=== PATIENT | female | born 1980 | race Hispanic/Latino ===

== ENCOUNTER 2019-03-24 09:07 | Emergency (ER) | payer BC ==
[~2019-03-24 09:07] MED LIST: KEFLEX500 MG PO; LABETALOL100 MG PO; MACROBID100 MG PO; MIRENA IU; OMNICEF300 MG PO; PRENATA3 OR; TUBERSOL5 MG/0.1 M ID
[2019-03-24 09:36] LABS: URINE BILIRUBIN - DIPSTICK NEGATIVE (NEGATIVE); URINE BLOOD DIPSTICK MODERATE (NEGATIVE); URINE COLOR YELLOW; URINE GLUCOSE - DIPSTICK NEGATIVE (NEGATIVE); URINE KETONE NEGATIVE (NEGATIVE); URINE LEUK ESTERASE TRACE (NEGATIVE); URINE NITRITE - DIPSTICK NEGATIVE (Negative); URINE PROTEIN - DIPSTICK NEGATIVE (NEG-TRACE); URINE SPECIFIC GRAVITY 1.025; URINE UROBILINOGEN - DIPSTICK 0.2 E.U./dL (0.2)
[2019-03-24 09:40] LABS: URINE EPITHELIAL CELLS MODERATE EPI/hpf (0-FEW); URINE WBC 0-2 WBC/hpf (0-5)
[2019-03-24 10:04] LABS: HEMATOCRIT 39.9 % (37.0-47.0); IMMATURE GRANULOCYTES 0.5 % (0.0-5.0); MEAN CELL VOLUME 87.1 fL CALC (80.0-100.0); MEAN CORPUSCULAR HGB 28.4 pG CALC (26.0-32.0); MEAN CORPUSCULAR HGB CONC 32.6 g/L CALC (32.0-36.0); NEUT# 4.22 thou/uL (2.00-7.15); RED BLOOD COUNT 4.58 mill/uL (4.20-5.60); RED CELL DISTRI WIDTH 12.5 % (11.5-15.5)
[2019-03-24 10:33] LABS: ANION GAP 17 (6-22 (CALC)); BILIRUBIN, TOTAL 0.4 mg/dL (0.0-1.4); BUN 12 mg/dL (7-17); BUN/CREATININE RATIO 19 (12-20 (CALC)); CARBON DIOXIDE 24 mmol/l (22-30); CHLORIDE 102 mmol/l (95-108); CREATININE 0.6 mg/dL (0.5-1.0); GFR > 60 ML/MIN (>=60 (CALC)); GFR FOR AFR.AMER. > 60 ML/MIN (>=60 (CALC)); POTASSIUM 4.4 mmol/l (3.5-5.1); SODIUM 139 mmol/l (137-146)
[2019-03-24 10:34] LABS: ALBUMIN 4.6 g/dL (3.2-5.0); ALKALINE PHOSPHATASE 67 u/l (38-126); SGOT/AST 57 u/l (14-36); TOTAL PROTEIN 7.6 g/dL (6.3-8.2)
[2019-03-24] MEDS ORDERED: HYDROCO/APAP1 TA9 PO (11:12)
[2019-03-24] MEDS ORDERED: TAMSULOSIN0.4 MG PO (11:15)
[2019-03-24 11:37] VITALS: BP 119/76
== END 2019-03-24 11:35 | disposition home or self-care (01) | DRG 694 ==
LOC: ED 09:07
PROVIDERS: Family Medicine
DX: N13.2 Hydronephrosis with renal and ureteral calculous obstruction (principal)

== ENCOUNTER 2019-03-25 06:33 | Observation (INO) | payer BC ==
[~2019-03-25] VITALS: Ht 167.6 cm; Wt 75.4 kg
[~2019-03-25 06:33] MED LIST changes: +HYDROCO/APAP1 TA9 PO; +TAMSULOSIN0.4 MG PO
--- NOTE | 2019-03-25 06:40 | NUR ---
PT TO ROOM 13 AMBLATORY
[2019-03-25 07:36] LABS: HEMATOCRIT 37.6 % (37.0-47.0); HEMOGLOBIN 12.4 g/dl (12.0-16.0); IMMATURE GRANULOCYTES 0.4 % (0.0-5.0); MEAN CORPUSCULAR HGB 28.7 pG CALC (26.0-32.0); NEUT# 6.13 thou/uL (2.00-7.15); RED BLOOD COUNT 4.32 mill/uL (4.20-5.60); RED CELL DISTRI WIDTH 12.4 % (11.5-15.5)
--- NOTE | 2019-03-25 07:44 | NUR ---
pt states pain has decreased to a 3 with toradol
[2019-03-25 07:55] LABS: ALBUMIN 3.9 g/dL (3.2-5.0); ALKALINE PHOSPHATASE 58 u/l (38-126); AMYLASE 41 u/l (30-110); ANION GAP 16 (6-22 (CALC)); BILIRUBIN, TOTAL 0.4 mg/dL (0.0-1.4); BUN 16 mg/dL (7-17); BUN/CREATININE RATIO 15 (12-20 (CALC)); CARBON DIOXIDE 22 mmol/l (22-30); CHLORIDE 105 mmol/l (95-108); CREATININE 1.1 mg/dL (0.5-1.0); GFR 56 ML/MIN (>=60 (CALC)); GFR FOR AFR.AMER. > 60 ML/MIN (>=60 (CALC)); LIPASE 141 u/l (23-300); SGOT/AST 35 u/l (14-36); SODIUM 138 mmol/l (137-146); TOTAL PROTEIN 6.8 g/dL (6.3-8.2)
[2019-03-25 08:00] LABS: URINE BILIRUBIN - DIPSTICK NEGATIVE (NEGATIVE); URINE COLOR YELLOW; URINE GLUCOSE - DIPSTICK NEGATIVE (NEGATIVE); URINE KETONE TRACE mg/dL (NEGATIVE); URINE LEUK ESTERASE NEGATIVE (NEGATIVE); URINE NITRITE - DIPSTICK NEGATIVE (Negative); URINE PH 5.5 (4.5-8.0); URINE PROTEIN - DIPSTICK NEGATIVE (NEG-TRACE); URINE SPECIFIC GRAVITY >=1.030; URINE UROBILINOGEN - DIPSTICK 0.2 E.U./dL (0.2)
[2019-03-25 08:02] LABS: URINE BLOOD DIPSTICK TRACE (NEGATIVE)
--- NOTE | 2019-03-25 08:12 | NUR ---
PT STATES PAIN IS RETURNING , DR. ROMERO NOTIFIED AND ORDERS RECEIVED
--- NOTE | 2019-03-25 09:27 | NUR ---
PT STATES PAIN HAS DECREASED TO A 3 AT THIS TIME
--- NOTE | 2019-03-25 10:32 | NUR ---
REPORT CALLED AND WILL WAIT FOR ORDERS FROM ADMITTING DOCTOR
--- NOTE | 2019-03-25 11:08 | NUR ---
SPOKE WITH IDANIA LARD TUB WASHER FOR ORDERS TO BE PLACED ON PT FOR ADMISSION, SHE STATES SHE WILL PUT THEM IN SOON SHE CAN
--- NOTE | 2019-03-25 11:30 | NUR ---
PT ARRIVED VIA WC WITH ER NURSE. WEIGHT OBTAINED STANDING. STEADY GAIT. MILD PAIN REPORTED TO LT FLANK BUT TOLERABLE. BERATHING EVEN AND UNLABORED. ORIENTED PT TO ROOM. ASSESSMENT COMPLETED. CALL LIGHT WITHIN REACH. CONTINUE TO MONITOR.
--- NOTE | 2019-03-25 11:33 | NUR ---
PT SENT UP TO ROOM PER W/C.
[2019-03-25 11:36] VITALS: BP 132/87
--- NOTE | 2019-03-25 12:40 | NUR ---
PT RESTING IN BED. C/O PAIN IN RT FLANK. IV FLUIDS INITIATED. MORPHINE 2MG IV GIVEN. TOLERATED WELL. PT VOIDED 250 CC WITH CLOUDY YELLOW APPEARANCE. URINE STRAINED. CALL LIGHT WITHIN REACH. CONTINUE TO MONITOR.
[2019-03-25 15:33] VITALS: BP 108/73
--- NOTE | 2019-03-25 16:03 | NUR ---
PT RESTING IN BED. NO PAIN AT THIS TIME. NO FURTHER NEEDS. CALL LIGHT WITHIN REACH. CONTINUE TO MONITOR.
--- NOTE | 2019-03-25 17:30 | NUR ---
DISCUSSED PROCEDURE. PT VERBALIZED UNDERSTANDING. OBTAINED CONSENT. PT VERBALIZED PAIN. MEDICATED.
--- NOTE | 2019-03-25 19:00 | NUR ---
REPORT RECEIVED FROM MARGE LIN. PT RESTING IN BED. NO S/S OF DISTRESS AT THIS TIME. SAFETY PRECAUTIONS IN PLACE. WILL CONTINUE TO MONITOR.
--- NOTE | 2019-03-25 19:55 | NUR ---
PT RESTING IN BED ALERT AND ORIENTED. RESPIRATIONS EVEN AND UNLABORED ON RA. LUNGS SOUND CLEAR. PEDAL PULSES ARE STRONG. PT DENIES ANY PAIN OR DISCOMFORT AT THIS TIME. PT ENCOURAGED TO USE CALL AGEE IF ANY NEEDS SHOULD ARISE. WILL CONTINUE TO MONITOR.
[2019-03-25 21:21] VITALS: BP 123/81
[2019-03-26] VITALS (9 sets, daily range): BP systolic 105–116; BP diastolic 65–78
--- NOTE | 2019-03-26 | NUR ---
PT EDUCATED ON PLAN OF CARE. PT TO BE NPO AFTER STARTING NOW, PT STATES UNDERSTANDING. WILL CONTINUE TO MONITOR.
--- NOTE | 2019-03-26 04:25 | NUR ---
PT RESTING IN BED. RESPIRATIONS EVEN AND UNLABORED ON RA. PT NPO. SAFETY PRECAUTIONS IN PLACE. WILL CONTINUE TO MONITOR.
[2019-03-26 04:51] LABS: HEMATOCRIT 34.6 % (37.0-47.0); HEMOGLOBIN 11.1 g/dl (12.0-16.0); IMMATURE GRANULOCYTES 0.4 % (0.0-5.0); MEAN CELL VOLUME 89.4 fL CALC (80.0-100.0); MEAN CORPUSCULAR HGB 28.7 pG CALC (26.0-32.0); MEAN CORPUSCULAR HGB CONC 32.1 g/L CALC (32.0-36.0); NEUT# 4.59 thou/uL (2.00-7.15); RED BLOOD COUNT 3.87 mill/uL (4.20-5.60); RED CELL DISTRI WIDTH 12.5 % (11.5-15.5)
[2019-03-26 05:42] LABS: ANION GAP 12 (6-22 (CALC)); BUN 9 mg/dL (7-17); BUN/CREATININE RATIO 9 (12-20 (CALC)); CALCULATED LDLCHOLESTEROL 88 mg/dL (62-129 (CALC)); CARBON DIOXIDE 24 mmol/l (22-30); CHLORIDE 104 mmol/l (95-108); CHOLESTEROL HDL RATIO 5.4 (<4.4 (CALC)); GFR > 60 ML/MIN (>=60 (CALC)); GFR FOR AFR.AMER. > 60 ML/MIN (>=60 (CALC)); HDL CHOLESTEROL 30 mg/dL (>=40); POTASSIUM 4.2 mmol/l (3.5-5.1); SODIUM 136 mmol/l (137-146); TOTAL CHOLESTEROL 163 mg/dl (0-199); TOTAL TRIGLYCERIDES 224 mg/dl (30-149); VLDL CHOLESTROL 45 mg/dl (1-41 (CALC))
--- NOTE | 2019-03-26 07:00 | NUR ---
RECIEVED REPORT FROM NIGHT NURSE. PT RESTING IN BED AWAITING SURGERY. NO NEEDS A THIS TIME. WILL CONTINUE TO MONITOR,
--- NOTE | 2019-03-26 08:50 | NUR ---
PT DOWN TO OR IN STABEL CONDITON
--- NOTE | 2019-03-26 11:28 | NUR ---
PT ARRIVES TO FLOOR VIA STRETCHER. ASSESMENT COMPLETED A THIS TIME. VS OBTAINED. PT IS GROGGY. FAMILY AT BEDSIDE. WILL CONTINUE TO MONITOR.
[2019-03-26] MEDS ORDERED: PERCOCET1 TA4 PO (15:30)
== END 2019-03-26 17:24 | disposition home or self-care (01) | DRG 661 ==
LOC: ED 06:33 → ED-I 09:39 → ED 09:52 → MS2 09:53
PROVIDERS: Emergency Medicine; Nurse Practitioner Family; ADMIT Internal Medicine; ATTEND Internal Medicine
PROC: 0TC78ZZ Extirpation of Matter from Left Ureter, Via Natural or Artificial Opening Endoscopic (ICD-10-PCS; principal; 2019-03-26)
PROC: 0T778DZ Dilation of Left Ureter with Intraluminal Device, Via Natural or Artificial Opening Endoscopic (ICD-10-PCS; 2019-03-26)
DX: N13.2 Hydronephrosis with renal and ureteral calculous obstruction (principal); N17.9 Acute kidney failure, unspecified
CPT/HCPCS: G0378; J0131; J1100; Q9967